=== PATIENT | male | born 1970 | race Hispanic/Latino ===

== ENCOUNTER 2019-05-17 17:23 | Emergency (ER) | payer MEDICAID ==
[2019-05-17] MEDS ORDERED: TETANUS/DIPHTHERIA TOXOID [ADULT] 0.5 ML VIAL IM ONE (17:31)
[2019-05-17] MEDS ORDERED: CEFAZOLIN SODIUM 1 GM VIAL ONE (17:50)
[2019-05-17] MEDS ORDERED: SODIUM CHLORIDE 0.9% 50 ML IV ONE (17:50)
== END 2019-05-17 18:41 | disposition home or self-care (01) ==
LOC: EDH 17:23
DX: S62.633B Displaced fracture of distal phalanx of left middle finger, initial encounter for open fracture (principal); I10 Essential (primary) hypertension; M19.90 Unspecified osteoarthritis, unspecified site; Z98.890 Other specified postprocedural states; W27.0XXA Contact with workbench tool, initial encounter; Y93.89 Activity, other specified; Y92.89 Other specified places as the place of occurrence of the external cause; Y99.8 Other external cause status
CPT/HCPCS: 64450; 73130; 90471; 90714; 96365; 99284; J0690; 96372

== ENCOUNTER 2022-07-02 11:25 | Emergency (ER) | payer MEDICAID ==
[~2022-07-02] VITALS: Ht 167.6 cm; Wt 71.2 kg
[2022-07-02 15:30] VITALS: BP 135/76
== END 2022-07-02 15:48 | disposition home or self-care (01) ==
LOC: EDH 11:25
DX: K40.90 Unilateral inguinal hernia, without obstruction or gangrene, not specified as recurrent (principal); E11.9 Type 2 diabetes mellitus without complications; Z91.030 Bee allergy status
CPT/HCPCS: 74176